=== PATIENT | female | born 1955 | race Asian ===

== ENCOUNTER 2017-06-08 10:36 | Emergency (ER) | END 2017-06-08 14:21 | disposition home or self-care (01) ==

== ENCOUNTER 2017-07-10 10:46 | Emergency (ER) | END 2017-07-10 15:43 | disposition home or self-care (01) ==

== ENCOUNTER 2017-12-15 13:40 | Emergency (ER) | END 2017-12-15 15:07 | disposition home or self-care (01) ==

== ENCOUNTER 2018-05-01 13:56 | Emergency (ER) | END 2018-05-01 18:35 | disposition home or self-care (01) ==

== ENCOUNTER 2018-05-12 11:17 | Emergency (ER) | payer BC ==
[~2018-05-12] VITALS: Ht 167.6 cm; Wt 41.7 kg
[~2018-05-12 11:17] MED LIST: FAMO-96 PO; FEXO180T61 PO; FLUT9.9S NASAL; IBUP-1542 PO; MAGN400O19 PO; OMEP20CA16 PO
[2018-05-12 11:32] VITALS: BP 119/64; PULSE 96; RESP 20; Ht 167.6 cm; Wt 41.7 kg
--- NOTE | 2018-05-12 13:02 | ERD ---
ER Documentation Chief Complaint Chief Complaint Complainsof right ankle pain x 3 days HPI 62-year-old female, returned to the emergency department, complaining of persistent right calcaneal pain during the last 3 days. The patient has been taking Tylenol and Motrin with mild improvement of the symptoms, otherwise, the patient refers that she is able to ambulate without difficulty. The pain is dull, constant, 4/10. She denies distal numbness, tingling or weakness. ROS All systems reviewed and are negative except as per history of present illness. Medications Home Meds Active Scripts Ibuprofen* (Motrin*) 400 Mg Tab, 400 MG PO Q8, #15 TAB Prov:PAT FRAGOSO MD 05/12/18 Acetaminophen* (Tylenol*) 325 Mg Tablet, 2 TAB PO Q8 PRN for PAIN AND OR ELEVATED TEMP, #20 TAB Prov:PAT FRAGOSO MD 05/12/18 Ibuprofen* (Motrin*) 600 Mg Tab, 600 MG PO Q8, #12 TAB Prov:PAT FRAGOSO MD 05/01/18 Magnesium Hydroxide* (Milk Of Magnesia*) 400 Mg/5 Ml Oral.susp, 30 ML PO BID for 5 Days, ML Prov:RENNY BARNETT MD 12/15/17 Omeprazole* (Omeprazole*) 20 Mg Capsule.dr, 20 MG PO DAILY, #14 Prov:DUSTIN MELTON PA-C 07/10/17 Famotidine* (Pepcid*) 20 Mg Tablet, 20 MG PO QHS for 4 Days, TAB Prov:DUSTIN MELTON PA-C 07/10/17 Fluticasone Propionate (Flonase Allergy Relief) 9.9 Ml [place].susp, 2 SPRAY NASAL DAILY for 30 Days, #1 BOTTLE TO EACH NOSTRIL Prov:CARIDAD BRAUN 06/08/17 Fexofenadine Hcl* (Rita*) 180 Mg Tablet, 180 MG PO DAILY, #30 TAB Prov:CARIDAD BRAUN 06/08/17 Reported Medications [None] No Conflict Check 02/21/16 Allergies Allergies: Coded Allergies: No Known Allergy (Unverified , 05/12/18) PMhx/Soc History of Surgery: Yes (CHOLECYSTECTOMY) Anesthesia Reaction: No Hx Neurological Disorder: No Hx Respiratory Disorders: No Hx Cardiac Disorders: No Hx Psychiatric Problems: No Hx Miscellaneous Medical Probl: Yes (gastritis) Hx Alcohol Use: No Hx Substance Use: No Hx Tobacco Use: No Smoking Status: Never smoker FmHx Family History: No diabetes, No coronary disease Physical Exam Vitals Vital Signs Date Temp Pulse Resp B/P (MAP) Pulse Ox O2 O2 Flow FiO2 Time Delivery Rate 05/12/18 99.3 96 20 119/64 99 11:32 (82) Physical Exam Const: No acute distress Head: Atraumatic Eyes: Normal Conjunctiva ENT: Normal External Ears, Nose and Mouth. Neck: Full range of motion. No meningismus. Resp: Clear to auscultation bilaterally Cardio: Regular rate and rhythm, no murmurs Abd: Soft, non tender, non distended. Normal bowel sounds Skin: No petechiae or rashes Back: No midline or flank tenderness Ext: No cyanosis, or edema. Right foot: Normal inspection, no ecchymosis or deformity, full range of motion, capillary refill less than 3 seconds. Neur: Awake and alert Psych: Normal Mood and Affect Results 24 hrs DIAGNOSTIC IMAGING REPORT Patient: FROYLAN WALTERS : 1955 Age: 62 Sex: F MR #: [id number] DOS: 05/12/18 1253 Ordering MD: PAT FRAGOSO MD Location: [facility] Room/Bed: PROCEDURE: CR Right Calcaneus CLINICAL INDICATION: Calcaneal pain after fall TECHNIQUE: A lateral and a tangential radiograph of the calcaneus were submitted. COMPARISON: Comparison to the previous right foot series done 05/01/2018. FINDINGS: The calcaneus and other visualized osseous elements appear intact with no fracture or destructive process evident. There is some minimal calcaneal spurring at the insertion of the Achilles tendon and to a lesser extent at the insertion of the plantar aponeurosis, unchanged. The subtalar joint is well maintained. The soft tissues appear unremarkable. IMPRESSION: 1. Minimal calcaneal spurring, unchanged. 2. No fracture is identified. Physician Brittany Date Time Electronically viewed and signed by Physician Brittany on 05/12/2018 13:56 RH/ CC: PAT FRAGOSO MD Procedures/MDM Acute right calcaneal pain: no red flags. Differential diagnosis include but not limited to: Ankle sprain/strain, ligament injury, arthritis; low suspicion for fracture, dislocation, septic arthritis. Neurovascular exam grossly intact. no clinical findings suggestive of acute infectious process, no deformity, no rashes. Pertinent Data: Calcaneal x-rays: No fracture or dislocation Physical examination and clinical presentation consistent most likely with calcaneal contusion. Results and clinical impression discussed with patient who agrees with management. The patient is stable to be treated outpatient and will be discharged home with recommendations for ice, rest, NSAIDs 3 times daily for 5 days and close monitoring. The patient was instructed to follow up with the primary care provider in the next 48h. If symptoms persist, worsen or new symptoms develop, then patient should return to the ED immediately. Instructions explained and given to patient with acknowledgment and demonstrated understanding. Disclaimer: Inadvertent spelling and grammatical errors are likely due to EHR/dictation software use and do not reflect on the overall quality of patient care. Also, please note that the electronic time recorded on this note does not necessarily reflect the actual time of the patient encounter. Departure Diagnosis: Primary Impression: Right foot injury Condition: Stable Patient Instructions: Contusion, Foot Additional Instructions: Thank you very much for allowing us to participate in your care. Your health and safety is our top priority at [facility]. Call your primary care doctor TOMORROW for an appointment during the next 2-4 days and bring all the information and medications prescribed. Have prescriptions filled and follow precisely the directions on the label. If the symptoms get worse and your provider is unavailable, return to the Emergency Department immediately. PAT FRAGOSO MD May 12, 2018 13:02
[2018-05-12] MEDS ORDERED: IBUP-1561 PO (14:16)
[2018-05-12] MEDS ORDERED: ACET325T33 PO (14:16)
== END 2018-05-12 14:26 | disposition home or self-care (01) ==
LOC: FTE 11:17
DX: S99.921A Unspecified injury of right foot, initial encounter (principal); X58.XXXA Exposure to other specified factors, initial encounter; Y92.9 Unspecified place or not applicable
CPT/HCPCS: 73650; Z7502